=== PATIENT | female | born 1975 ===

== ENCOUNTER → 2019-01-13 | Outpatient (CLI) | payer OTHER ==
--- NOTE | 2019-01-13 16:31 | Diagnostic Imaging Report ---
INDICATION: Palpable lump in the right breast. 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 COMPARISON: Correlation is made with prior mammograms from 04/04/2014 and 07/20/2013. TECHNIQUE: 2-D and 3-D bilateral diagnostic mammography was performed. The current study was also evaluated with a Computer Aided Detection (CAD) system. 3-D tomosynthesis was also performed and reviewed. FINDINGS: Both breasts are heterogeneously dense, limiting the sensitivity of mammography. Lobulated mass in the upper-outer right breast mid depth is noted consistent with known fibroadenoma. This is near the region of the BB marker placed at the area of palpable abnormality. No new mass is detected. No malignant-appearing microcalcifications are seen. Axillae are unremarkable. IMPRESSION: Lobulated mass in the upper-outer right breast corresponding with known fibroadenoma. No new abnormality is seen. Even so, directed sonographic interrogation of the area of palpable abnormality in the right breast is recommended and will be performed today. ACR BI-RADS Category 0: Incomplete. (Needs additional imaging evaluation). Result letter will be mailed to the patient. Note: At least 10% of breast cancer is not imaged by mammography. Dictated by: Dictated on workstation # [id number]
--- NOTE | 2019-01-13 17:10 | Diagnostic Imaging Report ---
INDICATION: Palpable lump, right breast. COMPARISON: Correlation is made with prior right breast ultrasound from 07/20/2013. FINDINGS: Lobulated hypoechoic solid mass at the 11 o'clock location of the right breast, 4 cm from the nipple is again noted. This measures approximately 2.7 x 1.7 x 1.8 cm compared with 2.4 x 1.2 x 2.1 cm. This was biopsied in 2013 and shown to represent a fibroadenoma. This appears to represent the area that the patient feels. No new mass is detected. IMPRESSION: Lobulated solid mass at the 11 o'clock location of the right breast, 4 cm from the nipple, corresponding to the patient's palpable abnormality. This is similar to perhaps minimally larger when compared with study five years earlier. This has been shown to represent a biopsy-proven fibroadenoma, and slight increase in size of fibroadenomas is acceptable. No new abnormality is seen. Patient may return to routine annual screening mammography. ACR BI-RADS Category 2: Benign findings. Dictated by: Dictated on workstation # [id number]
== END ==
LOC: RAD 13:21
PROVIDERS: ATTEND Nurse Practitioner Primary Care
DX: N63.11 Unspecified lump in the right breast, upper outer quadrant (principal); D24.1 Benign neoplasm of right breast
CPT/HCPCS: 77066